=== PATIENT | female | born 1955 | race Caucasian/White ===

== ENCOUNTER 2019-12-28 13:04 | Emergency (ER) | payer MEDICARE, SELFPAY ==
[2019-12-28 13:04] VITALS: BP 118/93; PULSE 94; RESP 18; TEMP 37.2; O2SAT 97; BMI 19.5
--- NOTE | 2019-12-28 13:24 | ED.DCSUM_ITS ---
History of Present Illness Chief Complaint: Fall Informant: Patient, Family Onset: Today Current Severity: Mild Maximum Severity: Moderate Narrative: Patient presents after a fall. She states her left foot caught and she could not catch her momentum. She hit her left face and right hip. She states she is most comfortable when she holds her right hip in flexion. When she tries to straighten her leg she gets pain. She did not lose consciousness. She does not have a headache. She does not take blood thinners. - Past Medical History (1) Pancreatic cancer Status: Chronic (2) Hypertension Status: Chronic (3) Coronary artery disease Status: Chronic (4) H/O heart artery stent Status: Chronic Past Medical History - Allergies and Home Meds Allergies/Adverse Reactions: Allergies No Known Allergies Allergy (Verified 12/28/19 13:08) Primary Care Physician: NOT,DEFINED [NON-STAFF] - Doctors: PCP in [place] Smoking Status: Former smoker Review of Systems General: Denies: Chills, Fever Eyes: Denies: Visual changes - bilaterally ENT: Reports: - - Pain to left maxilla. Denies: Bilateral ear pain Cardiovascular: Denies: Chest pain Respiratory: Denies: Dyspnea, Cough Gastrointestinal: Denies: Abdominal pain, Nausea, Vomiting, Diarrhea Musculoskeletal: Reports: Extremity Pain. Denies: Neck pain, Back pain Skin: Reports: Wounds Neurological: Denies: Headache, Weakness, Numbness Hematologic: Denies: Easy bruising, Easy bleeding Allergy: Denies: Uticaria Physical Exam Vital Signs/Narrative: Vital Signs Temp Pulse Resp BP Pulse Ox 12/28/19 13:04 98.9 F 94 18 118/93 H 97 Inital Vital Signs reviewed: Yes General: Well nourished, Well developed Head: Normocephalic Eyes: Perrl, EOMI ENT: Moist mucous membranes, - - Mild erythema to the left maxilla. No bony tenderness. Extraocular movements are fully intact. Neck: Supple, - - No C-spine tenderness. Cardiovascular: Regular rate, Regular rhythm Respiratory: No distress, CTA bilaterally Abdomen: Soft, Nontender Extremities: - - Mild pain to the anterior right hip. Able to logroll with minimal pain. Leg most comfortable when held in flexion. Strong distal pulses. Left lower extremity examination is normal. Left forearm reveals 2 superficial skin tears. No bleeding noted. Neurological: Alert, Oriented x3 Psychological: Normal affect Diagnostic/Tx/Re-eval Impressions Hip/Pelvis X-Ray 12/28/19 13:35 IMPRESSION: Normal x-ray examination of the pelvis and hip. Electronically Signed: Melanie Neves, at 14:39 EDT Tel , Service support , Abdomen/Pelvis CT 12/28/19 14:11 IMPRESSION: 1. Massive ascites. 2. Dilated small bowel, adynamic functional states versus early partial low-grade obstruction. 3. Probable cirrhosis. 4. Limited nondiagnostic assessment of the pancreas. Refer to definitive imaging if diagnosis of pancreatic abnormality is desired. Electronically Signed: Melanie Ryancruzito, at 16:07 EDT Tel , Service support , Lumbar Spine CT 12/28/19 14:11 IMPRESSION: 1. Unremarkable lumbar spine. No acute injury. Electronically Signed: Melanie Ryancruzito, at 16:20 EDT Tel , Service support , 12/28/19 13:35 HIP, UNI W/ Pelvis 2-3 Views [RAD] Stat 12/28/19 14:11 Abdomen/Pelvis without Cont [CT] Stat CT Lumbar [Spine Lumbar without Contrast] [CT] Stat - Medical Decision Making Initial x-rays were unremarkable. Patient was given [place] for pain. When we attempted to ambulate her she stated that her left leg was feeling numb and was giving out on her. At that time she was sent back for CT scan of abdomen and pelvis as well as lumbar spine. 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 This is unremarkable, however she does have chronic ascites. On repeat evaluation patient is resting comfortably. We will attempt to walk her with a walker. She states that if her leg still feels like it is giving out on her she is comfortable going home in a wheelchair and will follow-up with her doctor tomorrow. She now tells her this is happened to her in the past as well but she has not mentioned this to family members. ED Disposition - Plan for ED Patient: Disposition: Home or Assisted Living Diagnosis: Fall, Sprain of right hip, Skin tear Instructions: ED Fall Uncertain Cause, ED Sprain Hip, ED AVULSION LACERATION Additional Instructions: Follow-up with your doctor tomorrow as discussed.
[2019-12-28] MEDS: HYDROcodone Bitartrate/Apap 5/325 Tablet PO (13:29)
--- NOTE | 2019-12-28 13:35 | RAD_ITS ---
STUDY: X-RAY - PELVIS AND RIGHT HIP REASON FOR EXAM: Female, 64 years old. FELL, PAIN TECHNIQUE: 3 views of the pelvis and hip. COMPARISON: None. FINDINGS: There is a non-specific bowel gas pattern. Normal visualized soft tissue structures. Normal bilateral iliac wings, sacroiliac joints and visualized sacrum. Normal bilateral superior and inferior pubic rami. Normal pubic symphysis. Normal bilateral ischial tuberosities. Normal visualized femoral head. Normal acetabulum. Normal hip joint. RAD/HIP, UNI W/ Pelvis 2-3 Views IMPRESSION: Normal x-ray examination of the pelvis and hip. Electronically Signed: Melanie Neves, at 14:39 EDT Tel , Service support ,
--- NOTE | 2019-12-28 14:11 | CT_ITS ---
STUDY: CT ABDOMEN AND PELVIS WITHOUT CONTRAST REASON FOR EXAM: Female, 64 years old. Fall, history of pancreatic cancer RADIATION DOSAGE (If Supplied By Facility): CTDIvol = ( 6.05 ) mGy, DLP = ( 312.81 ) mGycm TECHNIQUE: Transaxial images were obtained from the dome of the diaphragm to the symphysis pubis without oral contrast, and without intravenous contrast. Sagittal and coronal images were reconstructed. Individualized dose optimization techniques were used for this CT. COMPARISON: None. FINDINGS: Lung bases are clear and moderately emphysematous. There is severe coronary artery disease. There is massive ascites. Evaluation of abdominal organs is challenging due to extensive fluid. Liver is small and probably cirrhotic. Spleen is enlarged. Adrenals and kidneys are normal. Pancreas is difficult to evaluate with questionable abnormality in the head. This requires contrast for definitive evaluation. There are dilated loops of small bowel containing fluid. Colon contains appropriate normal amount of gas and stool. There is diffuse mesenteric edema. Osseous structures are intact. CT/Abdomen/Pelvis without Cont IMPRESSION: 1. Massive ascites. 2. Dilated small bowel, adynamic functional states versus early partial low-grade obstruction. 3. Probable cirrhosis. 4. Limited nondiagnostic assessment of the pancreas. Refer to definitive imaging if diagnosis of pancreatic abnormality is desired. Electronically Signed: Melanie Neves, at 16:07 EDT Tel , Service support ,
--- NOTE | 2019-12-28 14:11 | CT_ITS ---
STUDY: CT LUMBAR SPINE WITHOUT CONTRAST REASON FOR EXAM: Female, 64 years old. Fall trauma, history of pancreatic cancer RADIATION DOSAGE (If Supplied By Facility): CTDIvol = ( 13.82 ) mGy, DLP = ( 460.18 ) mGycm TECHNIQUE: CT of the lumbar spine was performed without contrast. Sagittal and coronal images were reconstructed. Individualized dose optimization techniques were used for this CT. COMPARISON: None FINDINGS: Lumbar spine is intact and aligned with diffusely decreased mineralization, paraspinous soft tissues and SI joints. There are minor age appropriate changes. Aorta is of normal diameter. Spinal canal is patent. CT/Spine Lumbar without Contrast IMPRESSION: 1. Unremarkable lumbar spine. No acute injury. Electronically Signed: Melanie Neves, at 16:20 EDT Tel , Service support ,
[2019-12-28 17:56] VITALS: BP 103/70; PULSE 94; RESP 16; O2SAT 97
== END 2019-12-28 17:58 | disposition home or self-care (01) ==
PROVIDERS: Emergency Provider Emergency Medicine
DX: S73.101A Unspecified sprain of right hip, initial encounter (principal); S51.812A Laceration without foreign body of left forearm, initial encounter; R68.84 Jaw pain; W01.0XXA Fall on same level from slipping, tripping and stumbling without subsequent striking against object, initial encounter; Y93.9 Activity, unspecified; Y92.9 Unspecified place or not applicable; C25.9 Malignant neoplasm of pancreas, unspecified; I25.10 Atherosclerotic heart disease of native coronary artery without angina pectoris; Z95.5 Presence of coronary angioplasty implant and graft; Z87.891 Personal history of nicotine dependence
CPT/HCPCS: 72131; 73502; 74176; 99284